=== PATIENT | female | born 1985 | race Caucasian/White ===

== ENCOUNTER → 2019-01-28 | Outpatient (CLI) | payer OTHER ==
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
== END | disposition home or self-care (01) ==
LOC: PMG 14:26
PROVIDERS: ATTEND Family Medicine
DX: S69.92XA Unspecified injury of left wrist, hand and finger(s), initial encounter (principal); X58.XXXA Exposure to other specified factors, initial encounter; Y93.89 Activity, other specified; Y92.89 Other specified places as the place of occurrence of the external cause; Y99.8 Other external cause status
CPT/HCPCS: 73130

== ENCOUNTER → 2019-04-16 | Outpatient (CLI) | payer OTHER | END | disposition home or self-care (01) | LOC: PMG 10:26 | PROVIDERS: ATTEND Registered Nurse | DX: N89.8 Other specified noninflammatory disorders of vagina (principal) | CPT/HCPCS: 36415; 87480; 87510; 87660 ==

== ENCOUNTER → 2019-08-14 | Outpatient (CLI) | payer OTHER | END | disposition home or self-care (01) | LOC: PMG 11:30 | PROVIDERS: ATTEND Registered Nurse | DX: R35.0 Frequency of micturition (principal) | CPT/HCPCS: 87086 ==

== ENCOUNTER → 2019-08-30 | Outpatient (CLI) | payer OTHER ==
[2019-08-30 10:20] LABS: BACTERIA,URINE MOD /HPF (0-FEW); BILIRUBIN,URINE NEG (NEG); CLARITY,URINE CLOUDY; COLOR,URINE YELLOW; GLUCOSE,URINE NEG (NEG); NITRITE,URINE NEG (NEG); SQUAMOUS EPITHELIAL CELL,UR MANY /LPF; UROBILINOGEN,URINE 0.2 mg/dL (0.2 mg/dL)
== END ==
LOC: LAB 09:39
PROVIDERS: ATTEND Registered Nurse
DX: R35.0 Frequency of micturition (principal)
CPT/HCPCS: 81001; 87086

== ENCOUNTER → 2020-08-09 | Outpatient (CLI) | payer OTHER ==
--- NOTE | 2020-08-09 17:50 | RAD ---
Bilateral ankles 3 views each. HISTORY: Bilateral ankle pain Left ankle 3 views were taken of the left ankle. There is not evidence of an acute fracture or osseous abnormali ty Right ankle 3 views of the right ankle show no evidence of an acute fracture or osseous abnormality. IMPRESSION: 1. Negative bilateral ankles. Electronically signed by: Eduardo Peña MD (08/09/2020 5:47 PM) [id number]
== END ==
LOC: DXRAD 14:10
PROVIDERS: ATTEND Family Medicine
DX: M25.571 Pain in right ankle and joints of right foot (principal); M25.572 Pain in left ankle and joints of left foot
CPT/HCPCS: 73610

== ENCOUNTER → 2021-03-29 | Outpatient (CLI) | payer OTHER ==
--- NOTE | 2021-03-29 17:42 | RAD ---
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 No acute f racture. Alignment is normal. Disc spaces are maintained. Facet joints are normal. IMPRESSION: Normal lumbar spine radiograph. Electronically signed by: Mari Alvarez MD (03/29/2021 5:40 PM) [id number]
== END ==
LOC: RAD 14:31
PROVIDERS: ATTEND Physician Assistant
DX: M54.50 Low back pain, unspecified (principal)
CPT/HCPCS: 72110